=== PATIENT | female | born 1995 | race Caucasian/White ===

== ENCOUNTER 2016-10-16 00:04 | Emergency (ER) | payer OTHER ==
[2016-10-16 00:40] VITALS: BP 128/72
== END 2016-10-16 00:40 | disposition home or self-care (01) ==
LOC: ED 00:04
DX: Z00.00 Encounter for general adult medical examination without abnormal findings (principal)

== ENCOUNTER 2017-10-03 21:47 | Emergency (ER) | payer OTHER ==
[~2017-10-03] VITALS: Ht 170.2 cm; Wt 66.2 kg
[2017-10-03 21:59] VITALS: Ht 170.2 cm; Wt 66.2 kg
[2017-10-03 23:24] LABS: UA SPECIFIC GRAVITY 1.015 (1.005-1.035); microscopic required? YES; urine erythrocyte TRACE (NEGATIVE)
[2017-10-04 00:10] VITALS: BP 114/69
== END 2017-10-04 00:10 | disposition home or self-care (01) ==
LOC: ED 21:47
PROVIDERS: Emergency Medicine
DX: M79.672 Pain in left foot (principal); M25.562 Pain in left knee; R31.29 Other microscopic hematuria
CPT/HCPCS: Q0092

== ENCOUNTER 2017-12-29 21:56 | Emergency (ER) | payer OTHER ==
[~2017-12-29] VITALS: Ht 167.6 cm; Wt 64.4 kg
[2017-12-29 22:02] VITALS: Ht 167.6 cm; Wt 64.4 kg
[2017-12-29 23:52] LABS: BASOPHIL % 0.4 % (0-2); CALCIUM 9.2 mg/dL (8.5-10.1); CARBON DIOXIDE 25.8 mmol/L (21-32); CHLORIDE SERUM 105 mmol/L (98-107); CREATININE SERUM 0.8 mg/dL (0.6-1.0); GFR1 > 60 mL/min; GLUCOSE SERUM 95 mg/dL (74-106); PLATELET COUNT 321 x10^3mcL (130-400); POTASSIUM SERUM 4.3 mmol/L (3.5-5.1); RED CELL DISTRIBUTION WIDTH 13.8 % (11.5-14.5); SODIUM SERUM 136 mmol/L (136-145)
[2017-12-30 00:35] VITALS: BP 118/69
== END 2017-12-30 00:35 | disposition home or self-care (01) ==
LOC: ED 21:56
PROVIDERS: Emergency Medicine
DX: R59.0 Localized enlarged lymph nodes (principal)
CPT/HCPCS: 36415

== ENCOUNTER 2020-07-09 12:26 | Emergency (ER) | payer SELFPAY ==
[~2020-07-09] VITALS: Ht 167.6 cm; Wt 68.9 kg
[2020-07-09 12:38] VITALS: BP 119/59; Ht 167.6 cm; Wt 68.9 kg
[2020-07-09] MEDS ORDERED: CHLORASEPTIC20 ML PO (13:46)
[2020-07-09] MEDS ORDERED: AMOXICILLIN500 M1 PO (13:46)
== END 2020-07-09 13:59 | disposition home or self-care (01) ==
LOC: ED 12:26
DX: J02.9 Acute pharyngitis, unspecified (principal)